=== PATIENT | female | born 1950 | race Caucasian/White ===

== ENCOUNTER 2019-01-01 09:27 | Inpatient (IN) ==
[2019-01-01 10:34] LABS: Basophils # 0.1 K/mcL (0.0-0.2); Basophils % 0.5 %; Eosinophils # 0.4 K/mcL (0.0-0.6); Eosinophils % 3.6 %; Hematocrit 29.6 % (35.3-44.9); Hemoglobin 9.3 g/dL (11.5-15.4); Immature Granulocytes % 0.4 % (0-4); Lymphocytes # 0.4 K/mcL (0.6-4.6); Lymphocytes % 3.8 %; Mean Corpuscular HGB Conc 31.4 g/dL (31.6-35.5); Mean Corpuscular Hemoglobin 23.8 pg (28.0-33.3); Mean Corpuscular Volume 75.9 fL (83.0-100.0); Mean Platelet Volume 10.2 fL (9.4-12.4); Monocytes # 0.6 K/mcL (0.0-1.3); Monocytes % 5.4 %; Neutrophils # 9.9 K/mcL (1.6-8.9); Platelet Count 353 K/mcL (140-400); Red Cell Distribution Width 15.5 % (11.5-14.5); Segmented Neutrophils % 86.3 %; White Blood Count 11.5 K/mcL (4.3-11.1)
[2019-01-01] MEDS ORDERED: 0.9 % Sodium Chloride 1,000 ML IVC ONE ×2 (10:39→11:59)
[2019-01-01 10:47] LABS: VBG Ionized Calcium 1.69 mmol/L (1.15-1.35)
[2019-01-01] MEDS ORDERED: Isovue-370 500 ML BOTTLE IVP ONE (10:56)
[2019-01-01 10:59] LABS: Alanine Aminotransferase 7 Units/L (7-52); Albumin 3.6 g/dL (3.5-5.7); Albumin/Globulin Ratio 1.2 (1.1-2.2); Alkaline Phosphatase 54 Units/L (34-104); Aspartate Amino Transferase 16 Units/L (13-39); BUN/Creatinine Ratio 15 (6-26); Bilirubin,Total 0.6 mg/dL (0.3-1.0); Blood Urea Nitrogen 24 mg/dL (8-23); Calcium 12.6 mg/dL (8.6-10.3); Carbon Dioxide 23 mEq/L (23-29); Chloride 102 mEq/L (98-107); Globulin 3.1 g/dL (2.4-3.5); Glucose 119 mg/dL (70-105); Magnesium 1.6 mg/dL (1.6-2.6); Osmolality,Calculated 291 (280-300); Phosphorous 2.9 mg/dL (2.7-4.5); Potassium 3.1 mEq/L (3.5-5.1); Sodium 138 mEq/L (136-145); Total Protein 6.7 g/dL (6.4-8.9); eGFR For African Americans 40 (> 60); eGFR For Non-African Americans 33 (> 60)
[2019-01-01 11:12] LABS: Thyroid Stimulating Hormone 1.504 mcIU/mL (0.340-5.600)
[2019-01-01] MEDS ORDERED: Furosemide 40 MG/4 ML VIAL IVP ONE (11:44)
[2019-01-01] MEDS ORDERED: Naloxone 0.4 MG/ML INJ IVP PRN (12:12)
[2019-01-01 14:05] LABS: Creatine Kinase < 10 Units/L (30-223); Uric Acid 11.6 mg/dL (2.3-7.6)
[2019-01-01 15:19] LABS: Bilirubin,Urine Negative (Negative); Blood,Urine Negative (Negative); Clarity,Urine Clear (Clear); Color,Urine Yellow (Yellow); Glucose,Urine (UA) Normal (Normal); Ketones,Urine Negative (Negative); Leukocyte Esterase,Urine Negative (Negative); Nitrite,Urine Negative (Negative); PH,Urine 6.5 pH Units (5.0-8.0); Protein,Urine Negative (Neg-Trace); Specific Gravity,Urine 1.008 (1.010-1.025); Urobilinogen,Urine Normal (Normal)
[2019-01-01 15:29] LABS: Protein/Creatinine Ratio,Urine 0.56 mg/mg (0.00-0.20); Sodium, Urine 110.9 mEq/L
[2019-01-01] MEDS ORDERED: Zoledronic Acid (Zometa) 3 MG in 0.9 % Sodium Chloride 100 ML IV ONE (15:30)
[2019-01-01] MEDS: 0.9 % Sodium Chloride 1,000 ML IVC SCH (15:33)
[2019-01-01] MEDS: Potassium Chloride Elixir 20 MEQ/15 ML UDC PO SCH ×2 (15:34→18:35)
[2019-01-02] MEDS: 0.9 % Sodium Chloride 1,000 ML IVC SCH ×3 (00:15→19:37)
[2019-01-02 05:48] LABS: Basophils # 0.1 K/mcL (0.0-0.2); Basophils % 0.8 %; Eosinophils # 0.4 K/mcL (0.0-0.6); Eosinophils % 4.9 %; Hematocrit 25.6 % (35.3-44.9); Immature Granulocytes % 0.4 % (0-4); Lymphocytes # 0.4 K/mcL (0.6-4.6); Lymphocytes % 5.4 %; Mean Corpuscular HGB Conc 31.3 g/dL (31.6-35.5); Mean Corpuscular Hemoglobin 23.8 pg (28.0-33.3); Mean Corpuscular Volume 76.2 fL (83.0-100.0); Mean Platelet Volume 10.5 fL (9.4-12.4); Monocytes # 0.6 K/mcL (0.0-1.3); Monocytes % 7.6 %; Neutrophils # 6.3 K/mcL (1.6-8.9); Platelet Count 302 K/mcL (140-400); Red Blood Count 3.36 M/mcL (3.82-4.97); Red Cell Distribution Width 15.5 % (11.5-14.5); Segmented Neutrophils % 80.9 %; White Blood Count 7.8 K/mcL (4.3-11.1)
[2019-01-02 06:10] LABS: Calcium 11.6 mg/dL (8.6-10.3); Magnesium 1.5 mg/dL (1.6-2.6); Phosphorous 2.5 mg/dL (2.7-4.5); Potassium 3.4 mEq/L (3.5-5.1)
[2019-01-02] MEDS ORDERED: Fluticasone Propionate Nasal 50 MCG/SPRAY BOTTLE NS PRN (13:02)
[2019-01-02] MEDS ORDERED: Albuterol 2.5 MG/3 ML NEBULIZER IH PRN (13:04)
[2019-01-02] MEDS ORDERED: Ergocalciferol (VIT D2) 50,000 UNIT (1.25MG) CAP PO SCH (13:15)
[2019-01-02 14:23] LABS: Hematocrit 27.2 % (35.3-44.9); Hemoglobin 8.5 g/dL (11.5-15.4)
[2019-01-02 14:40] LABS: % Iron Saturation 7 % (15-50); Iron 16 mcg/dL (50-170); Transferrin 166 mg/dL (203-362)
[2019-01-02] MEDS: Ipratropium/Albuterol Neb 3 ML IH PRN ×2 (16:08→22:22)
[2019-01-02] MEDS: Pantoprazole 40 MG VIAL IVP SCH (18:24)
[2019-01-02] MEDS ORDERED: Acetaminophen 325 MG TABLET PO ONE (20:33)
[2019-01-03] MEDS: 0.9 % Sodium Chloride 1,000 ML IVC SCH ×4 (04:08→16:20)
[2019-01-03] MEDS: Pantoprazole 40 MG VIAL IVP SCH ×2 (05:20→17:28)
[2019-01-03] MEDS: Cyanocobalamin (B-12) 1,000 MCG TABLET PO SCH (07:51)
[2019-01-03] MEDS: Loratadine 10 MG TABLET PO SCH (07:52)
[2019-01-03] MEDS: Multivit/Ca/Min/Fe/FA 1 TAB TABLET PO SCH (07:52)
[2019-01-03] MEDS: Metoprolol XL (24 HR) Succ 25 MG TAB.ER.24H PO SCH (07:52)
[2019-01-03 08:14] LABS: Basophils # 0.1 K/mcL (0.0-0.2); Basophils % 0.6 %; Eosinophils # 0.3 K/mcL (0.0-0.6); Eosinophils % 3.4 %; Hemoglobin 7.6 g/dL (11.5-15.4); Immature Granulocytes % 0.7 % (0-4); Lymphocytes # 0.5 K/mcL (0.6-4.6); Lymphocytes % 5.4 %; Mean Corpuscular HGB Conc 30.4 g/dL (31.6-35.5); Mean Corpuscular Hemoglobin 24.1 pg (28.0-33.3); Mean Corpuscular Volume 79.1 fL (83.0-100.0); Mean Platelet Volume 9.8 fL (9.4-12.4); Monocytes # 0.5 K/mcL (0.0-1.3); Monocytes % 5.8 %; Platelet Count 291 K/mcL (140-400); Red Blood Count 3.16 M/mcL (3.82-4.97); Red Cell Distribution Width 15.6 % (11.5-14.5); Segmented Neutrophils % 84.1 %; White Blood Count 8.3 K/mcL (4.3-11.1)
[2019-01-03] MEDS ORDERED: Ferumoxytol 510 MG in 0.9 % Sodium Chloride 100 ML IVPB ONE (08:32)
[2019-01-03 08:34] LABS: Calcium 9.4 mg/dL (8.6-10.3); Magnesium 1.6 mg/dL (1.6-2.6); Potassium 3.3 mEq/L (3.5-5.1)
[2019-01-03 09:09] LABS: Albumin 3.2 g/dL (3.5-5.7); Phosphorous 2.4 mg/dL (2.7-4.5)
[2019-01-03] MEDS: Ipratropium/Albuterol Neb 3 ML IH PRN ×2 (11:57→16:31)
[2019-01-03] MEDS: Benzonatate 100 MG CAPSULE PO PRN (18:52)
[2019-01-04] MEDS: 0.9 % Sodium Chloride 1,000 ML IVC SCH (01:04)
[2019-01-04 01:12] LABS: Hematocrit 23.6 % (35.3-44.9); Hemoglobin 7.1 g/dL (11.5-15.4); Mean Corpuscular HGB Conc 30.1 g/dL (31.6-35.5); Mean Corpuscular Hemoglobin 23.9 pg (28.0-33.3); Mean Corpuscular Volume 79.5 fL (83.0-100.0); Mean Platelet Volume 10.4 fL (9.4-12.4); Platelet Count 285 K/mcL (140-400); Red Blood Count 2.97 M/mcL (3.82-4.97); Red Cell Distribution Width 15.6 % (11.5-14.5); White Blood Count 7.7 K/mcL (4.3-11.1)
[2019-01-04 01:33] LABS: Calcium 9.1 mg/dL (8.6-10.3); Magnesium 1.6 mg/dL (1.6-2.6); Potassium 3.6 mEq/L (3.5-5.1)
[2019-01-04] MEDS: Pantoprazole 40 MG VIAL IVP SCH ×2 (05:14→17:48)
[2019-01-04] MEDS: Cyanocobalamin (B-12) 1,000 MCG TABLET PO SCH (07:34)
[2019-01-04] MEDS: Loratadine 10 MG TABLET PO SCH (07:34)
[2019-01-04] MEDS: Multivit/Ca/Min/Fe/FA 1 TAB TABLET PO SCH (07:34)
[2019-01-04] MEDS: Metoprolol XL (24 HR) Succ 25 MG TAB.ER.24H PO SCH (07:34)
[2019-01-04] MEDS ORDERED: 0.9 % Sodium Chloride 500 ML ONE (09:17)
[2019-01-04 13:07] LABS: Urine Collection Volume RANDOM mL
[2019-01-04] MEDS: Benzonatate 100 MG CAPSULE PO PRN (14:54)
[2019-01-04 16:21] LABS: Hematocrit 29.2 % (35.3-44.9)
[2019-01-04 20:57] LABS: Kappa Qnt Free Light Chains 2.65 mg/dL (0.33-1.94); Lambda Qnt Free Light Chains 1.39 mg/dL (0.57-2.63)
[2019-01-05 01:42] LABS: Hematocrit 28.7 % (35.3-44.9); Mean Corpuscular HGB Conc 31.4 g/dL (31.6-35.5); Mean Corpuscular Hemoglobin 24.3 pg (28.0-33.3); Mean Corpuscular Volume 77.6 fL (83.0-100.0); Mean Platelet Volume 10.5 fL (9.4-12.4); Platelet Count 312 K/mcL (140-400); Red Cell Distribution Width 15.5 % (11.5-14.5); White Blood Count 11.3 K/mcL (4.3-11.1)
[2019-01-05 02:02] LABS: Calcium 9.5 mg/dL (8.6-10.3); Magnesium 1.5 mg/dL (1.6-2.6); Potassium 3.5 mEq/L (3.5-5.1)
[2019-01-05] MEDS: Pantoprazole 40 MG VIAL IVP SCH (06:13)
[2019-01-05] MEDS: Metoprolol XL (24 HR) Succ 25 MG TAB.ER.24H PO SCH (08:35)
[2019-01-05] MEDS: Loratadine 10 MG TABLET PO SCH (08:43)
[2019-01-05] MEDS ORDERED: Sodium Ferric Gluconat/Sucrose 125 MG in 0.9 % Sodium Chloride 100 ML IVPB SCH (09:00)
[2019-01-05 10:54] LABS: INR 1.4; Prothrombin Time 16.1 Seconds (9.4-12.1)
[2019-01-05] MEDS: Multivit/Ca/Min/Fe/FA 1 TAB TABLET PO SCH (14:39)
[2019-01-05] MEDS: Cyanocobalamin (B-12) 1,000 MCG TABLET PO SCH (14:39)
[2019-01-05 15:52] VITALS: BP 148/74
[2019-01-07 04:48] LABS: Alpha 2 Globulin (PEP) 0.95 g/dL (0.48-1.05); Beta Globulin (PEP) 0.58 g/dL (0.48-1.10)
[2019-01-07 10:34] LABS: IFE Reflexed IFE Done; Immunoglobulin A 155 mg/dL (68-408); Immunoglobulin G 565 mg/dL (768-1632); Immunoglobulin M 43 mg/dL (35-263)
== END 2019-01-05 15:50 | disposition home or self-care (01) | DRG 803 ==
LOC: EMEROOARM 09:27 → 3BNU 09:27 → SUATTDRO 01-02 13:22 → 3BNU 01-02 18:30
PROVIDERS: ADMIT Student in an Organized Health Care Education/Training Program; ATTEND Internal Medicine
PROC: IRLYMPH (2019-01-05 13:00)